=== PATIENT | female | born 1960 | race Caucasian/White ===

== ENCOUNTER 2021-01-04 16:22 | Emergency (ER) | payer OTHER ==
[2021-01-04 18:30] LABS: RED BLOOD COUNT 4.66 M/UL (4.00-5.10); WHITE BLOOD COUNT 9.3 K/UL (4.5-11.0)
[2021-01-04 19:15] LABS: BUN/CREATININE RATIO 11 (0-10)
[2021-01-04] MEDS ORDERED: IBUPROFEN600 MG PO (19:17)
== END 2021-01-04 19:28 | disposition home or self-care (01) ==
LOC: ER1 16:22
PROVIDERS: Nurse Practitioner
DX: F41.9 Anxiety disorder, unspecified (principal); R07.89 Other chest pain; F17.200 Nicotine dependence, unspecified, uncomplicated; I11.9 Hypertensive heart disease without heart failure; V49.40XA Driver injured in collision with unspecified motor vehicles in traffic accident, initial encounter
CPT/HCPCS: 70450; 71045; 72125; 72128; 72131; 80053; 85025; 99284